=== PATIENT | female | born 1960 | race Caucasian/White ===

== ENCOUNTER 2016-03-29 14:45 | Emergency (ER) | payer SELFPAY ==
[2016-03-29] MEDS ORDERED: HYDROcodone/Acetaminophen 10/325 mg Tablet ONE (15:17)
[2016-03-29] MEDS ORDERED: Dexamethasone 4 MG TAB ONE (15:17)
[2016-03-29] MEDS ORDERED: Cyclobenzaprine 10 MG TAB ONE (15:17)
--- NOTE | 2016-03-29 15:31 | ERRECORD ---
[facility] EMERGENCY RECORD HPI BACK (15:15 ABUS) CHIEF COMPLAINT: Patient presents for evaluation of pain, to the left lower back. HISTORIAN: History provided by patient, 56 yr old F with chronic left hip arthritis, and lower back pain who comes in with 2 days of worsening left lower back pain. uses a cane at baseline due to arthritis. denies any fever, loss of bowel or bladder function, numbness or motor deficits. She tried ibuprofen and Tylenol without much control. MECHANISM OF INJURY: No apparent mechanism of injury. LOCATION: Symptoms are localized to the back, sacral region. QUALITY: Pain is dull in nature, described as aching. SEVERITY: Currently symptoms are moderate, Current severity of pain rated as 8/10. TIME COURSE: Gradual onset of symptoms, 2 days, First recent visit for this complaint. ASSOCIATED WITH: No associated abdominal pain, No associated bladder incontinence, No associated bowel incontinence, No associated dysuria, No associated fever, No associated inability to ambulate, No associated motor weakness, No associated numbness, No associated problems with urination, No associated sciatica, No associated tingling. EXACERBATED BY: Patient's condition exacerbated by movement, Patient's condition exacerbated by walking. RELIEVED BY: Patient's condition relieved by nothing. ROS (15:18 ABUS) CONSTITUTIONAL: Negative constitutional review of systems, Historian denies chills, denies fever. CARDIOVASCULAR: Negative cardiovascular review of systems, Historian denies chest pain, denies palpitations. RESPIRATORY: Negative respiratory review of systems, Historian denies cough, denies shortness of breath. GI: Negative gastrointestinal review of systems, Historian denies abdominal pain, denies constipation, denies diarrhea, denies nausea, denies vomiting. GENITOURINARY FEMALE: Negative genitourinary review of systems, Historian denies dysuria, denies frequency. MUSCULOSKELETAL: Historian reports back pain, denies deformity, denies fall, denies injury, denies neck pain. SKIN: Negative skin review of systems, Historian denies rash, denies skin changes. NEUROLOGIC: Negative neurologic review of systems, Historian denies headache. HEMO/LYMPHATIC: Normal hematologic/lymphatic system review, Historian denies abnormal blood clotting. PAST MEDICAL HISTORY (14:59 SFRE) MEDICAL HISTORY: Past medical history includes musculoskeletal disorder, chronic back pain, HX [place] 6 YEARS AGO. RIGHT NEPHRECTOMY 5 YEARS AGO. Cardiomyopathy, &a-1R&a+25V*p+0X*p8032A*c202B*c15G*c2P*p-0X&a-25V&a+1R Name: Lacie Martini : 1960 F56 MedRec: [id number] AcctNum: [id number] Prepared: Tiago Mar 29, 2016 15:32 by Interface Page 1 of 4 pMD [facility] EMERGENCY RECORD myocardial infarction, hypertension, which has been treated, Patient is compliant, myocardial infarction, ENLARGED HEART, hyperlipidemia, high cholesterol. FEMALE SURGICAL HISTORY: Surgical history of nephrectomy, cholecystectomy, laparoscopic, hysterectomy, Surgical history of nephrectomy, on the right. 05/22/2014 Verified, nochanges. PSYCHIATRIC HISTORY: No previous psychiatric history. 05/23/14 Verified, no changes. SOCIAL HISTORY: Patient denies alcohol use, Patient denies drug use, Patient currently uses tobacco, smokes cigarettes, daily, Patient smokes 1/2 packs per day, Patient currently uses tobacco, Patient smokes cigarettes, Patient smokes 1/2 packs per day, Patient has smoked for 30 years, Patient denies alcohol use, Patient denies drug use, Lives at home, with family. 05/22/2014 Verified, no changes. KNOWN ALLERGIES No Known Allergies (Unconfirmed) No Known Drug Allergies CURRENT MEDICATIONS amLODIPine: TABLET : Strength - 5 mg : ORAL Patient Dose: 10 mg Oral once a day. (14:58 SFRE) meTOPROLOL tartrate: TABLET : Strength - 25 mg : ORAL Patient Dose: 100 mg Oral once a day. (14:58 SFRE) isosorbide mononitrate: TABLET : Strength - 20 mg : ORAL Patient Dose: 60 mg Oral once a day. (15:00 SFRE) VITAL SIGNS VITAL SIGNS: BP: 166/112 (Right Arm), Pulse: 102, Resp: 18, Temp: 97.0 (Tympanic), Pain: 8 (Sharp), O2 sat: 97, Time: 03/29/2016 14:54. (14:54 SFRE) BP: 189/105 (Left Arm), Time: 03/29/2016 15:01. (15:01 SFRE) PHYSICAL EXAM (15:18 ABUS) CONSTITUTIONAL: Vital signs reviewed, Patient afebrile, Pulse normal, Blood pressure normal, Respiratory rate normal, Patient appears non toxic, Patient appears pain free, Patient alert and oriented to person, place and time. NECK: Neck exam normal, Neck exam included findings of normal range of motion, Trachea midline, no meningeal signs, no cervical adenopathy, no tenderness. RESPIRATORY CHEST: Respiratory and chest exam normal, Respiratory exam included findings of no respiratory distress, Breath sounds clear. CARDIOVASCULAR: Cardiovascular assessment normal, Cardiovascular exam included findings of heart rate regular rate and rhythm, Heart &a-1R&a+25V*p+0X*m3414A*c202B*c15G*c2P*p-0X&a-25V&a+1R Name: Lacie Martini : 1960 F56 MedRec: [id number] AcctNum: [id number] Prepared: Tiago Mar 29, 2016 15:32 by Interface Page 2 of 4 pMD [facility] RECORD sounds normal. ABDOMEN FEMALE: Abdominal exam included findings of abdomen nontender, Bowel sounds normal, no distension, no mass, no pulsatile masses, no peritoneal signs, no rigidity, no guarding, no rebound, Rovsing's sign absent. BACK: Back exam included findings of normal inspection, Tenderness, midline to the lower back, paraspinal to the left lower back, no costovertebral angle tenderness, no Scoliosis, X-rays not ordered, . NEURO: Neuro exam normal, Neuro exam findings include patient oriented to person, place and time, Speech normal, Gait normal. SKIN: Skin exam normal, Skin exam included findings of skin warm, dry, and normal in color, no rash. MEDICATION ADMINISTRATION SUMMARY Drug Name: dexamethasone, Dose Ordered: 10 mg, Route: Oral, Status: Canceled, Time: 15:21 03/29/2016, Drug Name: HYDROcodone-acetaminophen, Dose Ordered: 10/325 tab(s), Route: Oral, Status: Given, Time: 15:27 03/29/2016, Drug Name: Flexeril, Dose Ordered: 10 mg, Route: Oral, Status: Given, Time: 15:20 03/29/2016, Drug Name: dexamethasone, Dose Ordered: 8 mg, Route: Oral, Status: Given, Time: 15:03/29/2016, Detailed record available in Medication Service section. DOCTOR NOTES (15:19 ABUS) TEXT: 56 yr old F with chronic left hip arthritis, and lower back pain who comes in with 2 days of worsening left lower back pain. uses a cane at baseline due to arthritis. Exam: tenderness to the left sacroiliac joint area. No area of redness or swelling noted. DDX: Muscle strain, Muscle Spasm, Ligamentous Injury, Contusion, Soft Tissue Injury, Arthritis, Degenerative Joint Disease, Spinal Stenosis, Disk Herniation PLAN: Analgesics, Muscle Relaxants. Final Dispo: Home with follow up and return precautions. All results of testing and evaluation were shared with the patient who verbalized understanding and agreement with the plan of care. Level of Complexity / Medical Decision Making: Low. PROBLEM LIST No recorded problems DIAGNOSIS (15:13 ABUS) FINAL: PRIMARY: Sacroiliac Joint Pain, ADDITIONAL: Arthritis. PRESCRIPTION (15:14 ABUS) Flexeril: TABLET : 10 mg : ORAL : Quantity: 1 Unit: tab(s) Route: ORAL Schedule: every 8 hours PRN Dispense: 8 &a-1R&a+25V*p+0X*[id number]*c202B*c15G*c2P*p-0X&a-25V&a+1R Name: Lacie Martini : 1960 F56 MedRec: [id number] AcctNum: [id number] Prepared: Tiago Mar 29, 2016 15:32 by Interface Page 3 of 4 pMD [facility] RECORD Unit: tab(s) May substitute. Refills: No Refills . NOTES: No Refills. acetaminophen-codeine: TABLET : 300 mg-30 mg : ORAL : Quantity: 1 Unit: tab(s) Route: ORAL Schedule: every 8 hours PRN Dispense: 8 Unit: tab(s) May substitute. Refills: No Refills . NOTES: ^s=No Refills No Refills. DISPOSITION PATIENT: Disposition Type: Discharge, Disposition: *Discharge Home, Condition: Good. (15:13 ABUS) Patient left the department. (15:30 MDALAINA) Franco: AB=MD Taco, James SPEARS=KEITH Jules, Claudia FRANCOE=KEITH Lam, Patience &a-1R&a+25V*p+0X*[id number]*c202B*c15G*c2P*p-0X&a-25V&a+1R Name: Lacie Martini : 1960 F56 MedRec: [id number] AcctNum: [id number] Prepared: Tiago Mar 29, 2016 15:32 by Interface Page 4 of 4 pMD MTDD
--- NOTE | 2016-03-29 15:37 | PICIS ---
[facility] EMERGENCY RECORD TRIAGE (14:56 SFRE) TRIAGE NOTES: KNOT TO LOWER RIGHT HIP NEAR TAILBONE. (14:56 SFRE) PATIENT: NAME: Lacie Martini, AGE: 56, GENDER: female, : Mon1960, TIME OF GREET: MonMar 29, 2016 14:45, PREFERRED LANGUAGE: German, ETHNICITY: Not or , ECODE BILLING MAP: [facility], SSN: [id number], Zip Code: [address], KG WEIGHT: 90.72, PHONE: , , , PERSON ID: [id number], PCP: NO PCP. (14:56 SFRE) COMPLAINT: KNOT ON BACK. (14:56 SFRE) ADMISSION: URGENCY: 4 Non Urgent, ADMISSION SOURCE: Home, TRANSPORT: Walk-in, BED: ED -04. (14:56 SFRE) ASSESSMENT: Assessment: WALKS WITH CANE AND APPEARS TO BE IN MODERATE PAIN, Symptoms began COUPLE DAYS. (15:02 SFRE) PAIN: Patient complains of pain described as, sharp, shooting, on a scale 0-10 patient rates pain as 8, Location LOWER BACK CLOSE TO TAILBONE, Pain is constant, Aggravating factors:, Pain exacerbated by movement, No relieving factors. (15:03 SFRE) IMMUNIZATIONS: Flu vaccine not up to date. (15:04 SFRE) SIRS SCORING: Heart Rate 55-109 (0), Temp range 96.8-101.1 (0), respiratory rate 12-24 (0), Mental Status altered: no (0). (15:04 SFRE) TRIAGE SCREENING: Patient denies suicidal ideation, Patient denies presence of domestic violence. (15:05 SFRE) PROVIDERS: TRIAGE NURSE: Patience Lam RN. (14:56 SFRE) VITAL SIGNS: BP 166/112, (Right Arm), Pulse 102, Resp 18, Temp 97.0, (Tympanic), Pain 8, (Sharp), O2 Sat 97, Time 03/29/2016 14:54. (14:54 SFRE) PREVIOUS VISIT ALLERGIES: No Known Drug Allergies. (14:56 SFRE) No Known Drug Allergies. (14:59 SFRE) KNOWN ALLERGIES No Known Allergies (Unconfirmed) No Known Drug Allergies CURRENT MEDICATIONS amLODIPine: TABLET : Strength - 5 mg : ORAL Patient Dose: 10 mg Oral once a day. (14:58 SFRE) meTOPROLOL tartrate: TABLET : Strength - 25 mg : ORAL Patient Dose: 100 mg Oral once a day. (14:58 SFRE) isosorbide mononitrate: TABLET : Strength - 20 mg : ORAL Patient Dose: 60 mg Oral once a day. (15:00 SFRE) VITAL SIGNS &a-1R&a+25V*p+0X*c4408M*c202B*c15G*c2P*p-0X&a-25V&a+1R Name: Lacie Martini : 1960 F56 MedRec: [id number] AcctNum: [id number] Prepared: MonMar 29, 2016 15:32 by Interface Page 1 of 6 pMD [facility] EMERGENCY RECORD VITAL SIGNS: BP: 166/112 (Right Arm), Pulse: 102, Resp: 18, Temp: 97.0 (Tympanic), Pain: 8 (Sharp), O2 sat: 97, Time: 03/29/2016 14:54. (14:54 SFRE) BP: 189/105 (Left Arm), Time: 03/29/2016 15:01. (15:01 SFRE) NURSING PROCEDURE: DISCHARGE NOTE (15:25 MDEB) DISCHARGE: Patient discharged to home, ambulating without assistance, family driving, accompanied by other family member, Summary of Care printed/ provided, Patient requested and was provided an electronic copy of Discharge Instructions, Transition record given to patient, Discharge instructions given to patient, Prescriptions given and instructions on side effects given, Above person(s) verbalized understanding of discharge instructions and follow-up care, Patient treated and evaluated by physician. BELONGINGS: Belongings remain with patient, Valuables remain with patient. NOTES: Emotional support needed and given, Patient tolerated procedure well. NURSING PROCEDURE: NURSE NOTES (15:06 SFRE) NURSES NOTES: Patient examined by physician. MEDICATION ADMINISTRATION SUMMARY Drug Name: dexamethasone, Dose Ordered: 10 mg, Route: Oral, Status: Canceled, Time: 15:21 03/29/2016, Drug Name: HYDROcodone-acetaminophen, Dose Ordered: 10/325 tab(s), Route: Oral, Status: Given, Time: 15:27 03/29/2016, Drug Name: Flexeril, Dose Ordered: 10 mg, Route: Oral, Status: Given, Time: 15:20 03/29/2016, Drug Name: dexamethasone, Dose Ordered: 8 mg, Route: Oral, Status: Given, Time: 15:20 03/29/2016, Detailed record available in Medication Service section. MEDICATION SERVICE dexamethasone: Order: dexamethasone - Dose: 10 mg : Oral Schedule: Now Ordered by: James España MD Entered by: Jaems España MD MonMar 29, 2016 15:12 , Acknowledged by: Claduia Jules RN MonMar 29, 2016 15:14. (CANCELED) dexamethasone: Originally ordered MonMar 29, 2016 15:12 Cancel reason: Change in medication plan. (15:21 MDEB) dexamethasone: Order: dexamethasone - Dose: 8 mg : Oral Schedule: Now Ordered by: James España MD Entered by: James España MD MonMar 29, 2016 15:21 Documented as given by: Claudia Jules RN MonMar 29, 2016 15:20 &a-1R&a+25V*p+0X*k3023D*c202B*c15G*c2P*p-0X&a-25V&a+1R Name: Lacie Martini : 1960 F56 MedRec: [id number] AcctNum: [id number] Prepared: MonMar 29, 2016 15:32 by Interface Page 2 of 6 pMD [facility] EMERGENCY RECORD Patient, Medication, Dose, Route and Time verified prior to administration. Amount given: 8 MG, Site: Medication administered P.O., Correct patient, time, route, dose and medication confirmed prior to administration, Patient advised of actions and side-effects prior to administration, Allergies confirmed and medications reviewed prior to administration, Patient in position of comfort, Side rails up, Cart in lowest position, Family at bedside. Flexeril: Order: Flexeril (cyclobenzaprine HCl) - Dose: 10 mg : Oral Schedule: Now Ordered by: James España MD Entered by: James España MD MonMar 29, 2016 15:12 Documented as given by: Claudia Jules RN Mar 29, 2016 15:20 Patient, Medication, Dose, Route and Time verified prior to administration. Amount given: 10 MG, Site: Medication administered P.O., Correct patient, time, route, dose and medication confirmed prior to administration, Patient advised of actions and side-effects prior to administration, Allergies confirmed and medications reviewed prior to administration, Patient in position of comfort, Side rails up, Cart in lowest position, Family at bedside. HYDROcodone-acetaminophen: Order: HYDROcodone-acetaminophen (hydrocodone bitartrate/acetaminophen) - Dose: 10/325 tab(s) : Oral Schedule: Now Ordered by: James España MD Entered by: James España MD MonMar 29, 2016 15:11 Documented as given by: Claudia Jules RN MonMar 29, 2016 15:27 Patient, Medication, Dose, Route and Time verified prior to administration. Amount given: 10/325 MG, Site: Medication administered P.O., Correct patient, time, route, dose and medication confirmed prior to administration, Patient advised of actions and side-effects prior to administration, Allergies confirmed and medications reviewed prior to administration, Patient in position of comfort, Side rails up, Cart in lowest position, Family at bedside. HPI BACK (15:15 ABUS) CHIEF COMPLAINT: Patient presents for evaluation of pain, to the left lower back. HISTORIAN: History provided by patient, 56 yr old F with chronic left hip arthritis, and lower back pain who comes in with 2 days of worsening left lower back pain. uses a cane at baseline due to arthritis. denies any fever, loss of bowel or bladder function, numbness or motor deficits. She tried ibuprofen and Tylenol without much control. MECHANISM OF INJURY: No apparent mechanism of injury. LOCATION: Symptoms are localized to the back, sacral region. QUALITY: Pain is dull in nature, described as aching. &a-1R&a+25V*p+0X*j2816D*c202B*c15G*c2P*p-0X&a-25V&a+1R Name: Lacie Martini : 1960 F56 MedRec: [id number] AcctNum: [id number] Prepared: MonMar 29, 2016 15:32 by Interface Page 3 of 6 pMD [facility] EMERGENCY RECORD SEVERITY: Currently symptoms are moderate, Current severity of pain rated as 8/10. TIME COURSE: Gradual onset of symptoms, 2 days, First recent visit for this complaint. ASSOCIATED WITH: No associated abdominal pain, No associated bladder incontinence, No associated bowel incontinence, No associated dysuria, No associated fever, No associated inability to ambulate, No associated motor weakness, No associated numbness, No associated problems with urination, No associated sciatica, No associated tingling. EXACERBATED BY: Patient's condition exacerbated by movement, Patient's condition exacerbated by walking. RELIEVED BY: Patient's condition relieved by nothing. ROS (15:18 ABUS) CONSTITUTIONAL: Negative constitutional review of systems, Historian denies chills, denies fever. CARDIOVASCULAR: Negative cardiovascular review of systems, Historian denies chest pain, denies palpitations. RESPIRATORY: Negative respiratory review of systems, Historian denies cough, denies shortness of breath. GI: Negative gastrointestinal review of systems, Historian denies abdominal pain, denies constipation, denies diarrhea, denies nausea, denies vomiting. GENITOURINARY FEMALE: Negative genitourinary review of systems, Historian denies dysuria, denies frequency. MUSCULOSKELETAL: Historian reports back pain, denies deformity, denies fall, denies injury, denies neck pain. SKIN: Negative skin review of systems, Historian denies rash, denies skin changes. NEUROLOGIC: Negative neurologic review of systems, Historian denies headache. HEMO/LYMPHATIC: Normal hematologic/lymphatic system review, Historian denies abnormal blood clotting. PAST MEDICAL HISTORY (14:59 SFRE) MEDICAL HISTORY: Past medical history includes musculoskeletal disorder, chronic back pain, HX [place] 6 YEARS AGO. RIGHT NEPHRECTOMY 5 YEARS AGO. Cardiomyopathy, myocardial infarction, hypertension, which has been treated, Patient is compliant, myocardial infarction, ENLARGED HEART, hyperlipidemia, high cholesterol. FEMALE SURGICAL HISTORY: Surgical history of nephrectomy, cholecystectomy, laparoscopic, hysterectomy, Surgical history of nephrectomy, on the right. 05/22/2014 Verified, nochanges. PSYCHIATRIC HISTORY: No previous psychiatric history. 05/23/14 Verified, no changes. SOCIAL HISTORY: Patient denies alcohol use, Patient denies drug use, Patient currently uses tobacco, smokes cigarettes, daily, Patient smokes 1/2 packs per day, Patient currently uses tobacco, Patient smokes cigarettes, Patient smokes 1/2 packs per day, Patient &a-1R&a+25V*p+0X*p5513Q*c202B*c15G*c2P*p-0X&a-25V&a+1R Name: Lacie Martini : 1960 F56 MedRec: [id number] AcctNum: [id number] Prepared: MonMar 29, 2016 15:32 by Interface Page 4 of 6 pMD [facility] EMERGENCY RECORD has smoked for 30 years, Patient denies alcohol use, Patient denies drug use, Lives at home, with family. 05/22/2014 Verified, no changes. PHYSICAL EXAM (15:18 ABUS) CONSTITUTIONAL: Vital signs reviewed, Patient afebrile, Pulse normal, Blood pressure normal, Respiratory rate normal, Patient appears non toxic, Patient appears pain free, Patient alert and oriented to person, place and time. NECK: Neck exam normal, Neck exam included findings of normal range of motion, Trachea midline, no meningeal signs, no cervical adenopathy, no tenderness. RESPIRATORY CHEST: Respiratory and chest exam normal, Respiratory exam included findings of no respiratory distress, Breath sounds clear. CARDIOVASCULAR: Cardiovascular assessment normal, Cardiovascular exam included findings of heart rate regular rate and rhythm, Heart sounds normal. ABDOMEN FEMALE: Abdominal exam included findings of abdomen nontender, Bowel sounds normal, no distension, no mass, no pulsatile masses, no peritoneal signs, no rigidity, no guarding, no rebound, Rovsing's sign absent. BACK: Back exam included findings of normal inspection, Tenderness, midline to the lower back, paraspinal to the left lower back, no costovertebral angle tenderness, no Scoliosis, X-rays not ordered, . NEURO: Neuro exam normal, Neuro exam findings include patient oriented to person, place and time, Speech normal, Gait normal. SKIN: Skin exam normal, Skin exam included findings of skin warm, dry, and normal in color, no rash. EVENTS TRANSFER: Triage to Emergency Main ED -04. (MonMar 29, 2016 14:56 SFRE) Removed from Emergency Main ED -04. (15:30 MDEB) DOCTOR NOTES (15:19 ABUS) TEXT: 56 yr old F with chronic left hip arthritis, and lower back pain who comes in with 2 days of worsening left lower back pain. uses a cane at baseline due to arthritis. Exam: tenderness to the left sacroiliac joint area. No area of redness or swelling noted. DDX: Muscle strain, Muscle Spasm, Ligamentous Injury, Contusion, Soft Tissue Injury, Arthritis, Degenerative Joint Disease, Spinal Stenosis, Disk Herniation PLAN: Analgesics, Muscle Relaxants. Final Dispo: Home with follow up and return precautions. All results of testing and evaluation were shared with the patient who verbalized understanding and agreement with the plan of care. Level of Complexity / Medical Decision Making: Low. &a-1R&a+25V*p+0X*x9985H*c202B*c15G*c2P*p-0X&a-25V&a+1R Name: Lacie Martini : 1960 F56 MedRec: [id number] AcctNum: [id number] Prepared: Tiago Mar 29, 2016 15:32 by Interface Page 5 of 6 pMD [facility] EMERGENCY RECORD PROBLEM LIST No recorded problems DIAGNOSIS (15:13 ABUS) FINAL: PRIMARY: Sacroiliac Joint Pain, ADDITIONAL: Arthritis. DISPOSITION PATIENT: Disposition Type: Discharge, Disposition: *Discharge Home, Condition: Good. (15:13 ABUS) Patient left the department. (15:30 MDEB) INSTRUCTION (15:13 ABUS) DISCHARGE: SACROILIITIS. FOLLOWUP: [facility], /[facility], [address] [place] [id number], , Follow up with Primary Care Physician as needed. SPECIAL: Please keep any upcoming appointments with your primary doctor or call the referral provided to you today to establish a follow up evaluation or ongoing medical care. Please come back if you start to have fever, vomiting, changes in bowel or bladder function, or any symptoms that concern you. PRESCRIPTION (15:14 ABUS) Flexeril: TABLET : 10 mg : ORAL : Quantity: 1 Unit: tab(s) Route: ORAL Schedule: every 8 hours PRN Dispense: 8 Unit: tab(s) May substitute. Refills: No Refills . NOTES: No Refills. acetaminophen-codeine: TABLET : 300 mg-30 mg : ORAL : Quantity: 1 Unit: tab(s) Route: ORAL Schedule: every 8 hours PRN Dispense: 8 Unit: tab(s) May substitute. Refills: No Refills . NOTES: ^s=No Refills No Refills. IMAGING *DISCHARGE INSTRUCTIONS RECEIPT: Image captured from scanner. (15:28 MDALAINA) *SUPPLY CHARGE SHEET: Image captured from scanner. (15:29 MDALAINA) ADMIN DIGITAL SIGNATURE: MD España Anthony. (15:20 ABUS) MD España Anthony. (15:23 ABUS) Franco: ABUS=MD España Anthony MDEB=KEITH Jules, Claudia SFRE=KEITH Lam, Patience &a-1R&a+25V*p+0X*d7805G*c202B*c15G*c2P*p-0X&a-25V&a+1R Name: Lacie Martini Shukri : 1960 F56 MedRec: [id number] AcctNum: [id number] Prepared: Tiago Mar 29, 2016 15:32 by Interface Page 6 of 6 pMD MTDD
== END 2016-03-29 15:25 | disposition home or self-care (01) ==
LOC: MADERS 14:45
DX: M46.1 Sacroiliitis, not elsewhere classified (principal); I25.2 Old myocardial infarction; I10 Essential (primary) hypertension; E78.5 Hyperlipidemia, unspecified; E78.00 Pure hypercholesterolemia, unspecified; F17.210 Nicotine dependence, cigarettes, uncomplicated; Z90.49 Acquired absence of other specified parts of digestive tract; Z90.710 Acquired absence of both cervix and uterus; Z79.899 Other long term (current) drug therapy
CPT/HCPCS: 99283; J8540

== ENCOUNTER 2016-09-19 22:37 | Emergency (ER) | payer OTHER ==
[~2016-09-19 22:37] MED LIST: Sodium Chloride 0.9% 100 ML BAG ONE; Sodium Chloride 0.9% 500 ML BAG ONE
[2016-09-19] MEDS ORDERED: Ondansetron HCl/PF 4 MG/2 ML Vial ONE (22:56)
[2016-09-19 23:10] LABS: Bilirubin Negative (Negative); Blood, Urine Small (Negative); Clarity Hazy (Clear); Glucose, Urine (Dipstick) Negative (Negative); Leukocyte Trace (Negative); Nitrite Negative (Negative); Protein, Urine (Dipstick) 100 mg/dL (Neg-Trace); Urobilinogen 0.2 mg/dL (0.2-1.0)
[2016-09-19 23:11] LABS: Bacteria/HPF 1+ HPF (None Seen); WBC/HPF 0-3 HPF (0-3)
[2016-09-19 23:15] LABS: #Basophils 0.1 thou/uL (0.0-0.2); #Eosinphils 0.1 thou/uL (0.0-0.7); #Lymphocytes 2.3 thou/uL (1.20-3.40); #Monocytes 0.5 thou/uL (0.11-0.59); #Neutrophils 6.1 thou/uL (1.40-6.50); %Basophils 0.9 % (0.0-1.0); %Eosinophils 1.1 % (0.0-10.0); %Monocytes 5.6 % (0.0-10.0); %Neutrophils 67.4 % (42.0-75.0); Hemoglobin 15.1 g/dL (12.0-16.0); Mean Corpuscular HGB CONC 33.8 g/dL (32.0-36.0); Mean Corpuscular Hemoglobin 30.3 pg (27.0-31.0); Mean Corpuscular Volume 89.5 fl (81.0-99.0); Platelet Count 227 thou/uL (130-400); RBC Distribution Width 11.9 % (11.5-14.5); Red Blood Cell (RBC) Count 4.97 mill/uL (4.20-5.40)
[2016-09-19 23:30] LABS: ALT (SGPT) 11 U/L (8-55); AST (SGOT) 13 U/L (5-34); Albumin 4.2 g/dL (3.5-5.0); Alkaline Phosphatase 62 U/L (40-150); Anion Gap 17 mmol/L (10-20); BUN (Urea Nitrogen) 18 mg/dL (9.8-20.1); Bilirubin, Total 0.5 mg/dL (0.2-1.2); Calc. Creatinine Clearance 0 mL/min (70-130); Calcium 9.8 mg/dL (7.8-10.44); Carbon Dioxide 24 mmol/L (22-29); Chloride 104 mmol/L (98-107); Estimated GFR-MDRD 48; Globulin 3.4 g/dL (2.4-3.5); Glucose 99 mg/dL (70-105); Lipase 23 U/L (8-78); Magnesium 1.9 mg/dL (1.6-2.6); Potassium 3.6 mmol/L (3.5-5.1); Protein, Total 7.6 g/dL (6.0-8.3); Sodium 141 mmol/L (136-145)
[2016-09-19 23:31] LABS: CKMB 1.7 ng/mL (0-6.6); Troponin I 0.015 ng/mL (< 0.028)
--- NOTE | 2016-09-19 23:45 | CT ---
CT ABDOMEN AND PELVIS WITHOUT CONTRAST 09/19/16 COMPARISON: 09/30/13 HISTORY: Nausea, vomiting, and abdominal pain. TECHNIQUE: Multiple contiguous axial images were obtained in a CT of the abdomen and pelvis without contrast. C oronal reformats were performed. FINDINGS: The patient is status post cholecystectomy, hysterectomy and right nephrectomy. A hypodensity in the left kidney likely represents a cyst. There is a 9 mm nonobstructing calcification in the left kidn ey. There is a 1.6 cm cyst in the liver. The adrenal glands, spleen, and pancreas are unremarkable o n this limited noncontrast examination. There is stranding changes in the abdomen adjacent to the stomach/proximal duodenum. This could repr esent duodenitis or gastritis. No free air or free fluid are seen in the abdomen or pelvis. Scattere d diverticula are seen in the colon. The small bowel is normal in caliber. The appendix is unremarka ble. No abdominal or pelvic lymphadenopathy are seen. Atherosclerotic calcifications are seen in the aort a. Degenerative changes are seen in the spine. The visualized inferior thorax and abdominal wall soft t issues are unremarkable. IMPRESSION: 1. There is inflammatory change in the right mid abdomen. This could be secondary to gastritis or duodenitis. 2. Diverticulosis. 3. Nonobstructing left renal calcification. 4. Hepatic and left renal cysts. POS: [facility]
[2016-09-19] MEDS ORDERED: cefTRIAXone\\ROCEPHIN 1 GM VIAL ONE (23:49)
[2016-09-19] MEDS ORDERED: Promethazine HCl 25 MG/ML VIAL ONE (23:49)
== END 2016-09-20 00:14 | disposition short-term general hospital (02) ==
LOC: MADERS 22:37
DX: N20.0 Calculus of kidney (principal); K29.80 Duodenitis without bleeding; G89.29 Other chronic pain; M54.9 Dorsalgia, unspecified; E78.5 Hyperlipidemia, unspecified; F17.210 Nicotine dependence, cigarettes, uncomplicated; Z79.2 Long term (current) use of antibiotics; Z79.899 Other long term (current) drug therapy
CPT/HCPCS: 51701; 74176; 80053; 81003; 81015; 82553; 83690; 83735; 84484; 85025; 87086; 96361; 96374; 96375; A4353; J0696; J2270; J2405; J2550; J7050

== ENCOUNTER 2017-01-18 15:51 | Emergency (ER) | payer OTHER ==
[~2017-01-18 15:51] MED LIST changes: +Sodium Chloride 0.9% 1,000 ML BAG ONE; -Sodium Chloride 0.9% 100 ML BAG ONE; -Sodium Chloride 0.9% 500 ML BAG ONE
[2017-01-18 16:26] LABS: #Basophils 0.1 thou/uL (0.0-0.2); #Lymphocytes 1.7 thou/uL (1.20-3.40); #Monocytes 0.3 thou/uL (0.11-0.59); %Basophils 0.7 % (0.0-1.0); %Eosinophils 0.4 % (0.0-10.0); %Lymphocytes 20.9 % (21.0-51.0); %Monocytes 3.9 % (0.0-10.0); %Neutrophils 74.1 % (42.0-75.0); Hemoglobin 10.1 g/dL (12.0-16.0); Mean Corpuscular HGB CONC 33.2 g/dL (32.0-36.0); Mean Corpuscular Hemoglobin 30.5 pg (27.0-31.0); Mean Corpuscular Volume 91.9 fl (81.0-99.0); Mean Platelet Volume 7.8 fL (7.4-10.4); Platelet Count 196 thou/uL (130-400); RBC Distribution Width 13.8 % (11.5-14.5); Red Blood Cell (RBC) Count 3.32 mill/uL (4.20-5.40)
[2017-01-18 16:29] LABS: INR-International Normal Ratio 1.1; Prothrombin Time 14.5 SEC (12.0-14.7)
[2017-01-18] MEDS ORDERED: Nitroglycerin 0.4 MG TAB 1 EACH ONE (16:29)
[2017-01-18] MEDS ORDERED: Ondansetron HCl/PF 4 MG/2 ML Vial ONE (16:29)
[2017-01-18 16:44] LABS: ALT (SGPT) 8 U/L (8-55); AST (SGOT) 11 U/L (5-34); Albumin 3.5 g/dL (3.5-5.0); Alkaline Phosphatase 45 U/L (40-150); Anion Gap 15 mmol/L (10-20); BUN (Urea Nitrogen) 30 mg/dL (9.8-20.1); Bilirubin, Total Less than 0.3 mg/dL (0.2-1.2); CKMB 2.2 ng/mL (0-6.6); Calc. Creatinine Clearance 0 mL/min (70-130); Calcium 8.7 mg/dL (7.8-10.44); Carbon Dioxide 23 mmol/L (22-29); Chloride 111 mmol/L (98-107); Estimated GFR-MDRD 54; Globulin 2.4 g/dL (2.4-3.5); Glucose 100 mg/dL (70-105); Lipase 17 U/L (8-78); Potassium 3.5 mmol/L (3.5-5.1); Protein, Total 5.9 g/dL (6.0-8.3); Sodium 145 mmol/L (136-145); Troponin I 0.055 ng/mL (< 0.028)
--- NOTE | 2017-01-18 16:51 | RAD ---
RADIOGRAPH CHEST 1 VIEW: HISTORY: A 56-year-old female with acute chest pain. FINDINGS: There is hyperinflation of the lungs, consistent with COPD. The thoracic aorta is tortuous and ecta tic. There is no evidence of air space density, pneumothorax, or pulmonary edema. The lateral cost ophrenic angles are sharp. There is no cardiomegaly. No interval change overall since 05/22/2014. IMPRESSION: 1) No acute pulmonary findings. 2) Emphysema. 3) Ectasia of thoracic aorta. soledad [] POS: [facility]
== END 2017-01-18 18:06 | disposition short-term general hospital (02) ==
LOC: MADERS 15:51
DX: R07.2 Precordial pain (principal); R79.89 Other specified abnormal findings of blood chemistry; I25.2 Old myocardial infarction; I10 Essential (primary) hypertension; E78.5 Hyperlipidemia, unspecified; F17.210 Nicotine dependence, cigarettes, uncomplicated; G89.29 Other chronic pain
CPT/HCPCS: 71010; 80053; 82553; 83690; 83880; 84484; 85025; 85610; 85730; 93005; 94760; 96374; J2405; J7050

== ENCOUNTER 2017-03-15 13:15 | Emergency (ER) | payer OTHER ==
[2017-03-15] MEDS ORDERED: Ibuprofen 800 MG TAB ONE (14:17)
[2017-03-15] MEDS ORDERED: Diazepam 5 MG TAB ONE (14:17)
[2017-03-15] MEDS ORDERED: Dexamethasone 4 MG TAB ONE (14:17)
[2017-03-15] MEDS ORDERED: HYDROcodone/Acetaminophen 10/325 mg Tablet ONE (14:17)
== END 2017-03-15 14:27 | disposition home or self-care (01) ==
LOC: MADERS 13:15
DX: M54.5 Low back pain (principal); E78.5 Hyperlipidemia, unspecified; F17.210 Nicotine dependence, cigarettes, uncomplicated; I10 Essential (primary) hypertension; I25.2 Old myocardial infarction
CPT/HCPCS: 99283; J8540

== ENCOUNTER 2017-11-17 18:02 | Emergency (ER) | payer OTHER ==
[2017-11-17] MEDS ORDERED: Clindamycin 150 MG CAP ONE (18:20)
[2017-11-17] MEDS ORDERED: HYDROcodone/Acetaminophen 10/325 mg Tablet ONE (18:20)
== END 2017-11-17 18:30 | disposition home or self-care (01) ==
LOC: MADERS 18:02
DX: L03.116 Cellulitis of left lower limb (principal); I10 Essential (primary) hypertension; F17.210 Nicotine dependence, cigarettes, uncomplicated; I25.2 Old myocardial infarction
CPT/HCPCS: 99283

== ENCOUNTER 2018-04-12 18:45 | Emergency (ER) | payer OTHER, SELFPAY ==
[2018-04-12] MEDS ORDERED: traMADol HCl 50 MG TAB ONE ×2 (20:19)
== END 2018-04-12 20:20 | disposition home or self-care (01) ==
LOC: MADERS 18:45
DX: I83.028 Varicose veins of left lower extremity with ulcer other part of lower leg (principal); L97.829 Non-pressure chronic ulcer of other part of left lower leg with unspecified severity; K21.9 Gastro-esophageal reflux disease without esophagitis; E78.5 Hyperlipidemia, unspecified; I10 Essential (primary) hypertension; F17.210 Nicotine dependence, cigarettes, uncomplicated; Z79.899 Other long term (current) drug therapy; Z79.82 Long term (current) use of aspirin
CPT/HCPCS: 36416; 99283

== ENCOUNTER 2018-05-25 13:37 | Emergency (ER) | payer SELFPAY ==
[2018-05-25] MEDS ORDERED: methylPREDNISolone Sod Succ/PF 125 MG/2 ML VIAL ONE (14:49)
--- NOTE | 2018-05-25 15:58 | RAD ---
RIGHT HIP 2 VIEWS: Date: 05/25/18 HISTORY: Joint pain. FINDINGS: Complete loss of joint space with mild lateral subluxation. Prominent osteophytosis and subchondral s clerosis. Articular surface irregularity on both sides. No aggressive osseous erosions. IMPRESSION: Severe osteoarthritic changes right hip. POS: [facility]
[2018-05-25] MEDS ORDERED: Ibuprofen 800 MG TAB ONE (18:36)
== END 2018-05-25 15:30 | disposition home or self-care (01) ==
LOC: MADERS 13:37
DX: M16.11 Unilateral primary osteoarthritis, right hip (principal); Z71.6 Tobacco abuse counseling; K21.9 Gastro-esophageal reflux disease without esophagitis; E78.5 Hyperlipidemia, unspecified; I25.2 Old myocardial infarction; I10 Essential (primary) hypertension; F17.210 Nicotine dependence, cigarettes, uncomplicated; Z79.899 Other long term (current) drug therapy; Z79.82 Long term (current) use of aspirin
CPT/HCPCS: 96372; 99406; J2930

== ENCOUNTER 2018-07-05 12:50 | Emergency (ER) | payer SELFPAY ==
--- NOTE | 2018-07-05 13:13 | RAD ---
EXAM: Single view of the chest HISTORY: Chest pain COMPARISON: 01/18/2017 FINDINGS: Single view of the chest shows a normal sized cardiomediastinal silhouette. There is no dom dence of consolidation, mass, or pleural effusion. The bones are unremarkable. IMPRESSION: No evidence of acute cardiopulmonary disease
[2018-07-05 13:27] LABS: #Lymphocytes 0.7 thou/uL (1.20-3.40); #Monocytes 0.3 thou/uL (0.11-0.59); #Neutrophils 8.5 thou/uL (1.40-6.50); %Basophils 0.3 % (0.0-1.0); %Eosinophils 0.2 % (0.0-10.0); %Monocytes 3.3 % (0.0-10.0); %Neutrophils 89.2 % (42.0-75.0); Hemoglobin 11.4 g/dL (12.0-16.0); Mean Corpuscular HGB CONC 30.9 g/dL (32.0-36.0); Mean Corpuscular Hemoglobin 27.8 pg (27.0-31.0); Mean Corpuscular Volume 89.9 fL (78.0-98.0); Mean Platelet Volume 7.8 fL (7.4-10.4); Platelet Count 239 thou/uL (130-400); RBC Distribution Width 14.6 % (11.5-14.5); Red Blood Cell (RBC) Count 4.09 mill/uL (4.20-5.40); White Blood Cell (WBC) Count 9.5 thou/uL (4.8-10.8)
[2018-07-05 13:34] LABS: PTT 27.4 SEC (22.9-36.1); Prothrombin Time 13.6 SEC (12.0-14.7)
[2018-07-05] MEDS ORDERED: Pantoprazole 40 MG VIAL ONE (13:36)
[2018-07-05 13:45] LABS: ALT (SGPT) 9 U/L (8-55); AST (SGOT) 12 U/L (5-34); Albumin 3.9 g/dL (3.5-5.0); Alkaline Phosphatase 54 U/L (40-150); Anion Gap 17 mmol/L (10-20); BUN (Urea Nitrogen) 43 mg/dL (9.8-20.1); Bilirubin, Total 0.4 mg/dL (0.2-1.2); Calc. Creatinine Clearance 0 mL/min (70-130); Calcium 10.2 mg/dL (7.8-10.44); Carbon Dioxide 22 mmol/L (22-29); Chloride 106 mmol/L (98-107); Estimated GFR-MDRD 39; Globulin 3.1 g/dL (2.4-3.5); Glucose 110 mg/dL (70-105); Potassium 4.6 mmol/L (3.5-5.1); Sodium 140 mmol/L (136-145)
[2018-07-05] MEDS ORDERED: Ondansetron PF 4 MG/2 ML Vial ONE (16:12)
== END 2018-07-05 16:14 | disposition short-term general hospital (02) ==
LOC: MADERS 12:50
DX: K92.2 Gastrointestinal hemorrhage, unspecified (principal); K21.9 Gastro-esophageal reflux disease without esophagitis; E78.5 Hyperlipidemia, unspecified; I10 Essential (primary) hypertension; R07.2 Precordial pain; F17.210 Nicotine dependence, cigarettes, uncomplicated; Z79.891 Long term (current) use of opiate analgesic; Z79.899 Other long term (current) drug therapy; Z79.82 Long term (current) use of aspirin
CPT/HCPCS: 71045; 80053; 82274; 83880; 84484; 85025; 85610; 85730; 93005; 94760; 96374; 96375; C9113; J2405

== ENCOUNTER 2018-08-05 17:26 | Emergency (ER) | payer SELFPAY ==
[2018-08-05] MEDS ORDERED: Ciprofloxacin Lactate/D5W 400 mg/200 ml Premix ONE (18:28)
[2018-08-05] MEDS ORDERED: Ondansetron PF 4 MG/2 ML Vial ONE (18:28)
[2018-08-05 19:02] LABS: #Eosinphils 0.1 thou/uL (0.0-0.7); #Lymphocytes 1.8 thou/uL (1.20-3.40); #Monocytes 0.4 thou/uL (0.11-0.59); #Neutrophils 4.8 thou/uL (1.40-6.50); %Basophils 0.6 % (0.0-1.0); %Eosinophils 1.3 % (0.0-10.0); %Lymphocytes 25.1 % (21.0-51.0); %Monocytes 6.3 % (0.0-10.0); %Neutrophils 66.8 % (42.0-75.0); Hemoglobin 11.9 g/dL (12.0-16.0); Mean Corpuscular Hemoglobin 26.9 pg (27.0-31.0); Mean Corpuscular Volume 86.9 fL (78.0-98.0); Mean Platelet Volume 7.3 fL (7.4-10.4); Platelet Count 200 thou/uL (130-400); RBC Distribution Width 13.9 % (11.5-14.5); Red Blood Cell (RBC) Count 4.43 mill/uL (4.20-5.40); White Blood Cell (WBC) Count 7.1 thou/uL (4.8-10.8)
[2018-08-05 19:17] LABS: ALT (SGPT) Less than 7 U/L (8-55); AST (SGOT) 11 U/L (5-34); Albumin 3.8 g/dL (3.5-5.0); Alkaline Phosphatase 57 U/L (40-150); Anion Gap 13 mmol/L (10-20); BUN (Urea Nitrogen) 13 mg/dL (9.8-20.1); Bilirubin, Total 0.3 mg/dL (0.2-1.2); Calc. Creatinine Clearance 0 mL/min (70-130); Calcium 9.6 mg/dL (7.8-10.44); Carbon Dioxide 25 mmol/L (22-29); Chloride 106 mmol/L (98-107); Estimated GFR-MDRD 67; Glucose 99 mg/dL (70-105); Lipase 27 U/L (8-78); Potassium 4.4 mmol/L (3.5-5.1); Protein, Total 6.8 g/dL (6.0-8.3); Sodium 140 mmol/L (136-145)
[2018-08-05 19:35] LABS: Bilirubin Negative (Negative); Blood, Urine Small (Negative); Glucose, Urine (Dipstick) Negative (Negative); Leukocyte Small (Negative); Nitrite Negative (Negative); Protein, Urine (Dipstick) 30 mg/dL (Neg-Trace); Specific Gravity, Urine 1.025 (1.005-1.030); Urobilinogen 0.2 mg/dL (0.2-1.0)
[2018-08-05 19:36] LABS: Clarity Hazy (Clear)
[2018-08-05 19:41] LABS: Bacteria/HPF None Seen HPF (None Seen); WBC/HPF 21-50 HPF (0-3)
== END 2018-08-05 20:00 | disposition home or self-care (01) ==
LOC: MADERS 17:26
DX: L97.929 Non-pressure chronic ulcer of unspecified part of left lower leg with unspecified severity (principal); R19.7 Diarrhea, unspecified; R11.10 Vomiting, unspecified; N39.0 Urinary tract infection, site not specified; E78.5 Hyperlipidemia, unspecified; K21.9 Gastro-esophageal reflux disease without esophagitis; F17.210 Nicotine dependence, cigarettes, uncomplicated; I10 Essential (primary) hypertension; I25.2 Old myocardial infarction; Z79.891 Long term (current) use of opiate analgesic; Z79.82 Long term (current) use of aspirin; Z79.899 Other long term (current) drug therapy
CPT/HCPCS: 36415; 80053; 81003; 81015; 83605; 83690; 85025; 87086; 96365; 96375; J0744; J2405

== ENCOUNTER 2020-03-20 18:27 | Emergency (ER) | payer SELFPAY ==
[2020-03-20] MEDS ORDERED: Sodium Chloride 0.9% 1,000 ML ONE (19:09)
[2020-03-20] MEDS ORDERED: Prochlorperazine 10 MG/2 ML VIAL ONE (19:09)
[2020-03-20] MEDS ORDERED: diphenhydrAMINE 50 MG/ML VIAL ONE (19:09)
[2020-03-20] MEDS ORDERED: Acetaminophen 500 MG TAB ONE (19:09)
== END 2020-03-20 20:48 | disposition home or self-care (01) ==
LOC: MADERS 18:27
DX: G43.909 Migraine, unspecified, not intractable, without status migrainosus (principal); K21.9 Gastro-esophageal reflux disease without esophagitis; E78.5 Hyperlipidemia, unspecified; I25.2 Old myocardial infarction; I12.9 Hypertensive chronic kidney disease with stage 1 through stage 4 chronic kidney disease, or unspecified chronic kidney disease; N18.30 Chronic kidney disease, stage 3 unspecified; F17.210 Nicotine dependence, cigarettes, uncomplicated; Z79.899 Other long term (current) drug therapy
CPT/HCPCS: 96365; 96375; J0780; J1200; J7050

== ENCOUNTER 2020-11-19 18:05 | Emergency (ER) | payer SELFPAY ==
[2020-11-19 19:30] LABS: #Basophils 0.1 thou/uL (0.0-0.2); #Lymphocytes 1.5 thou/uL (1.20-3.40); #Neutrophils 11.7 thou/uL (1.40-6.50); %Basophils 0.5 % (0.0-1.0); %Eosinophils 0.1 % (0.0-10.0); %Lymphocytes 10.8 % (21.0-51.0); %Monocytes 6.6 % (0.0-10.0); Hemoglobin 13.1 g/dL (12.0-16.0); Mean Corpuscular HGB CONC 31.3 g/dL (32.0-36.0); Mean Corpuscular Hemoglobin 28.6 pg (27.0-31.0); Mean Corpuscular Volume 91.4 fL (78.0-98.0); Mean Platelet Volume 9.5 fL (7.4-10.4); Platelet Count 249 thou/uL (130-400); RBC Distribution Width 14.2 % (11.5-14.5); Red Blood Cell (RBC) Count 4.59 mill/uL (4.20-5.40); White Blood Cell (WBC) Count 14.3 thou/uL (4.8-10.8)
[2020-11-19 19:32] LABS: Bilirubin Small (Negative); Blood, Urine Moderate (Negative); Glucose, Urine (Dipstick) Negative (Negative); Ketone, Urine Negative (Negative); Leukocyte Large (Negative); Nitrite Negative (Negative); Protein, Urine (Dipstick) > or equal to 300 mg/dL (Neg-Trace); Specific Gravity, Urine 1.025 (1.005-1.030)
[2020-11-19 19:38] LABS: Clarity Cloudy (Clear); RBC/HPF 0-3 HPF (0-3); WBC/HPF Greater Than 50 HPF (0-3)
[2020-11-19 19:39] LABS: Bacteria/HPF 3+ HPF (None Seen)
[2020-11-19 19:40] LABS: ALT (SGPT) 22 U/L (8-55); AST (SGOT) 14 U/L (5-34); Albumin 3.6 g/dL (3.5-5.0); Alkaline Phosphatase 68 U/L (40-110); Anion Gap 17 mmol/L (10-20); BUN (Urea Nitrogen) 23 mg/dL (9.8-20.1); Bilirubin, Total 0.7 mg/dL (0.2-1.2); Calc. Creatinine Clearance 0 mL/min (70-130); Calcium 10.4 mg/dL (7.8-10.44); Carbon Dioxide 26 mmol/L (22-29); Chloride 99 mmol/L (98-107); Globulin 3.4 g/dL (2.4-3.5); Glucose 108 mg/dL (70-105); Lipase 15 U/L (8-78); Magnesium 1.7 mg/dL (1.6-2.6); Potassium 3.9 mmol/L (3.5-5.1); Sodium 138 mmol/L (136-145)
[2020-11-19] MEDS ORDERED: Metoclopramide HCl 10 MG/2 ML VIAL ONE (20:02)
[2020-11-19] MEDS ORDERED: diphenhydrAMINE 50 MG/ML VIAL ONE (20:02)
[2020-11-19] MEDS ORDERED: Sodium Chloride 0.9% 1,000 ML ONE (20:02)
[2020-11-19] MEDS ORDERED: cefTRIAXone\\ROCEPHIN 1 GM VIAL ONE (22:06)
== END 2020-11-19 22:18 | disposition home or self-care (01) ==
LOC: MADERS 18:05
DX: N17.9 Acute kidney failure, unspecified (principal); N39.0 Urinary tract infection, site not specified; E86.0 Dehydration; R19.7 Diarrhea, unspecified; K21.9 Gastro-esophageal reflux disease without esophagitis; E78.5 Hyperlipidemia, unspecified; I25.2 Old myocardial infarction; I12.9 Hypertensive chronic kidney disease with stage 1 through stage 4 chronic kidney disease, or unspecified chronic kidney disease; N18.30 Chronic kidney disease, stage 3 unspecified; F17.210 Nicotine dependence, cigarettes, uncomplicated; Z79.899 Other long term (current) drug therapy
CPT/HCPCS: 36415; 74177; 80053; 81003; 81015; 83690; 83735; 85025; 96374; 96375; J0696; J1200; J2765; J7050

== ENCOUNTER 2021-12-29 21:18 | Emergency (ER) | payer OTHER ==
[2021-12-29] MEDS ORDERED: Boostrix 0.5 ML (Tdap) VIAL (>/=7 yrs of age) ONE (21:37)
[2021-12-29] MEDS ORDERED: Doxycycline 100 MG CAP ONE (21:39)
[2021-12-29] MEDS ORDERED: Cephalexin 500 MG CAP ONE (21:39)
== END 2021-12-29 22:03 | disposition home or self-care (01) ==
LOC: MADERS 21:18
DX: L03.032 Cellulitis of left toe (principal); I12.9 Hypertensive chronic kidney disease with stage 1 through stage 4 chronic kidney disease, or unspecified chronic kidney disease; N18.9 Chronic kidney disease, unspecified; B35.1 Tinea unguium; E78.5 Hyperlipidemia, unspecified; K21.9 Gastro-esophageal reflux disease without esophagitis; F17.210 Nicotine dependence, cigarettes, uncomplicated; Z79.01 Long term (current) use of anticoagulants; Z79.02 Long term (current) use of antithrombotics/antiplatelets; Z79.899 Other long term (current) drug therapy
CPT/HCPCS: 87070; 87205; 90471; 90715

== ENCOUNTER 2022-08-03 11:33 | Emergency (ER) | payer OTHER ==
[~2022-08-03 11:33] MED LIST changes: +Iopamidol 370 76% 100 ML VIAL ONE; -Sodium Chloride 0.9% 1,000 ML BAG ONE
[2022-08-03 12:15] LABS: #Basophils 0.1 thou/uL (0.0-0.2); #Eosinphils 0.1 thou/uL (0.0-0.7); #Lymphocytes 1.4 thou/uL (1.20-3.40); #Monocytes 0.3 thou/uL (0.11-0.59); #Neutrophils 3.8 thou/uL (1.40-6.50); %Basophils 1.1 % (0.0-1.0); %Eosinophils 0.9 % (0.0-10.0); %Lymphocytes 25.5 % (21.0-51.0); %Monocytes 5.4 % (0.0-10.0); %Neutrophils 67.1 % (42.0-75.0); Hemoglobin 14.6 g/dL (12.0-16.0); Mean Corpuscular HGB CONC 32.1 g/dL (32.0-36.0); Mean Corpuscular Hemoglobin 29.6 pg (27.0-31.0); Mean Corpuscular Volume 92.1 fl (78.0-98.0); Mean Platelet Volume 7.6 fL (7.4-10.4); Platelet Count 182 10x3/uL (130-400); RBC Distribution Width 13.8 % (11.5-14.5); Red Blood Cell (RBC) Count 4.92 mill/uL (4.20-5.40); White Blood Cell (WBC) Count 5.6 10x3/uL (4.8-10.8)
[2022-08-03 12:29] LABS: Bilirubin Negative (Negative); Blood, Urine Moderate (Negative); Clarity Cloudy (Clear); Glucose, Urine (Dipstick) Negative (Negative); Ketone, Urine Negative (Negative); Leukocyte Small (Negative); Nitrite Positive (Negative); Protein, Urine (Dipstick) 100 mg/dL (Neg-Trace); Specific Gravity, Urine 1.025 (1.005-1.030); Urobilinogen 0.2 mg/dL (Less than 2)
[2022-08-03] MEDS ORDERED: Morphine 2 MG/ML VIAL ONE (12:29)
[2022-08-03] MEDS ORDERED: Ondansetron PF 4 MG/2 ML Vial ONE (12:29)
[2022-08-03 12:30] LABS: ALT (SGPT) 14 U/L (8-55); AST (SGOT) 23 U/L (5-34); Albumin 4.1 g/dL (3.4-4.8); Alkaline Phosphatase 48 U/L (40-110); Anion Gap 19 mmol/L (10-20); BUN (Urea Nitrogen) 17 mg/dL (9.8-20.1); Bilirubin, Total Less than 0.2 mg/dL (0.2-1.2); Calc. Creatinine Clearance 0 mL/min (70-130); Calcium 9.4 mg/dL (7.8-10.44); Carbon Dioxide 21 mmol/L (23-31); Chloride 109 mmol/L (98-107); Estimated GFR 56; Globulin 3.2 g/dL (2.4-3.5); Glucose 85 mg/dL (80-115); Lipase 14 U/L (8-78); Magnesium 1.8 mg/dL (1.6-2.6); Potassium 4.4 mmol/L (3.5-5.1); Protein, Total 7.3 g/dL (5.8-8.1); Sodium 145 mmol/L (136-145)
[2022-08-03 12:40] LABS: Bacteria/HPF 1+ HPF (None Seen); Squamous Epithelial 0-3 HPF (0-3); WBC/HPF Greater than 50 HPF (0-3)
[2022-08-03] MEDS ORDERED: Sodium Chloride 0.9% 500 ML ONE (12:46)
[2022-08-03] MEDS ORDERED: Sodium Chloride 0.9% 100 ML ONE (13:05)
[2022-08-03] MEDS ORDERED: cefTRIAXone (ROCEPHIN) 2 GM VIAL ONE (13:05)
== END 2022-08-03 13:33 | disposition home or self-care (01) ==
LOC: MADERS 11:33
DX: N12 Tubulo-interstitial nephritis, not specified as acute or chronic (principal); K57.30 Diverticulosis of large intestine without perforation or abscess without bleeding; K21.9 Gastro-esophageal reflux disease without esophagitis; E78.5 Hyperlipidemia, unspecified; I10 Essential (primary) hypertension; I25.2 Old myocardial infarction; F17.210 Nicotine dependence, cigarettes, uncomplicated; Z79.899 Other long term (current) drug therapy
CPT/HCPCS: 74177; 80053; 81003; 81015; 83690; 83735; 85025; 87077; 87086; 87186; 96365; 96375; J0696; J2272; J2405; J7030; Q9967

== ENCOUNTER 2023-02-13 15:36 | Emergency (ER) | payer MEDICARE ==
[2023-02-13 16:02] LABS: Bilirubin Negative (Negative); Blood, Urine Moderate (Negative); Glucose, Urine (Dipstick) Negative (Negative); Ketone, Urine Negative (Negative); Leukocyte Moderate (Negative); Nitrite Negative (Negative); Protein, Urine (Dipstick) > or equal to 300 mg/dL (Neg-Trace); Specific Gravity, Urine 1.025 (1.005-1.030); Urobilinogen 0.2 mg/dL (Less than 2)
[2023-02-13 16:03] LABS: Clarity Cloudy (Clear)
[2023-02-13 16:11] LABS: CAUTI Indications for Culture Dysuria,urgency,freq; WBC/HPF Greater Than 50 HPF (0-3)
[2023-02-13 16:12] LABS: Bacteria/HPF Rare-Few HPF (None Seen); Urine Culture Reflex Yes Yes
[2023-02-13] MEDS ORDERED: cefTRIAXone (ROCEPHIN) 1 GM VIAL ONE (16:25)
== END 2023-02-13 16:59 | disposition home or self-care (01) ==
LOC: MADERS 15:36
DX: N39.0 Urinary tract infection, site not specified (principal); E78.5 Hyperlipidemia, unspecified; K21.9 Gastro-esophageal reflux disease without esophagitis; I12.9 Hypertensive chronic kidney disease with stage 1 through stage 4 chronic kidney disease, or unspecified chronic kidney disease; N18.30 Chronic kidney disease, stage 3 unspecified; F17.210 Nicotine dependence, cigarettes, uncomplicated
CPT/HCPCS: 81001; 87086; 96372; 99283; J0696

== ENCOUNTER 2023-05-17 09:02 | Emergency (ER) | payer MEDICARE ==
[2023-05-17] MEDS ORDERED: Sodium Chloride 0.9% 1,000 ML ONE (09:54)
[2023-05-17 10:32] LABS: ALT (SGPT) 12 U/L (8-55); AST (SGOT) 15 U/L (5-34); Albumin 3.5 g/dL (3.4-4.8); Alkaline Phosphatase 51 U/L (40-110); Anion Gap 15 mmol/L (10-20); BUN (Urea Nitrogen) 20 mg/dL (9.8-20.1); Bilirubin, Total 0.4 mg/dL (0.2-1.2); CK (CPK) 27 U/L (29-168); Calc. Creatinine Clearance 0 mL/min (70-130); Calcium 8.8 mg/dL (7.8-10.44); Carbon Dioxide 22 mmol/L (23-31); Chloride 108 mmol/L (98-107); Estimated GFR 49; Glucose 100 mg/dL (80-115); Potassium 4.5 mmol/L (3.5-5.1); Protein, Total 6.5 g/dL (5.8-8.1); Sodium 140 mmol/L (136-145)
[2023-05-17 10:41] LABS: Bilirubin Negative (Negative); Blood, Urine Large (Negative); Glucose, Urine (Dipstick) Negative (Negative); Ketone, Urine Negative (Negative); Leukocyte Large (Negative); Nitrite Negative (Negative); Protein, Urine (Dipstick) > or equal to 300 mg/dL (Neg-Trace); Specific Gravity, Urine 1.025 (1.005-1.030); Urobilinogen 0.2 mg/dL (Less than 2)
[2023-05-17 10:52] LABS: Bacteria/HPF 2+ HPF (None Seen); CAUTI Indications for Culture Pelvic or flank pain; Clarity Cloudy (Clear); Squamous Epithelial 0-3 HPF (0-3); WBC/HPF Greater than 50 HPF (0-3)
[2023-05-17 10:54] LABS: Urine Culture Reflex Yes Yes
[2023-05-17] MEDS ORDERED: cefTRIAXone (ROCEPHIN) 1 GM VIAL ONE (11:04)
[2023-05-17] MEDS ORDERED: Sodium Chloride 0.9% 100 ML ONE (11:04)
[2023-05-17 11:05] LABS: Hematocrit 35.7 % (36.0-47.0); Hemoglobin 11.6 g/dL (12.0-16.0); MDiff Complete? YES; Manual Diff?? YES; Mean Corpuscular HGB CONC 32.3 g/dL (32.0-36.0); Mean Corpuscular Hemoglobin 29.5 pg (27.0-31.0); Mean Corpuscular Volume 91.5 fl (78.0-98.0); Mean Platelet Volume 9.1 fL (7.4-10.4); Platelet Count 142 10x3/uL (130-400); RBC Distribution Width 14.3 % (11.5-14.5); Red Blood Cell (RBC) Count 3.94 mill/uL (4.20-5.40); White Blood Cell (WBC) Count 6.6 10x3/uL (4.8-10.8)
[2023-05-17 11:06] LABS: Anisocytosis SLIGHT = 6-15 cells (100X) (0-5/hpf); Band 6 % (5-11); Eosinophils 2 % (0-10); Lymphocytes 24 % (21-51); Monocytes 5 % (0-10); Neutrophil 63 % (42-75); Platelet Adequacy Comment Appears Adequate
== END 2023-05-17 11:43 | disposition home or self-care (01) ==
LOC: MADERS 09:02
DX: N39.0 Urinary tract infection, site not specified (principal); E86.0 Dehydration; N17.9 Acute kidney failure, unspecified; D64.9 Anemia, unspecified; F17.210 Nicotine dependence, cigarettes, uncomplicated; I25.2 Old myocardial infarction; E78.5 Hyperlipidemia, unspecified; I10 Essential (primary) hypertension; K21.9 Gastro-esophageal reflux disease without esophagitis; Z79.82 Long term (current) use of aspirin; Z79.899 Other long term (current) drug therapy
CPT/HCPCS: 80053; 81001; 82550; 85025; 87077; 87086; 96361; 96365; J0696; J3490; J7050

== ENCOUNTER 2024-04-21 17:02 | Emergency (ER) | payer MEDICARE ==
[2024-04-21 17:40] LABS: Bilirubin Negative (Negative); Blood, Urine Large (Negative); Glucose, Urine (Dipstick) Negative (Negative); Ketone, Urine Negative (Negative); Leukocyte Small (Negative); Nitrite Negative (Negative); Protein, Urine (Dipstick) 100 mg/dL (Neg-Trace); Urobilinogen 0.2 mg/dL (Less than 2); pH, Urine 5.5 (5.0-9.0)
[2024-04-21 17:41] LABS: Clarity Very Cloudy (Clear)
[2024-04-21 17:47] LABS: Bacteria/HPF Rare-Few HPF (None Seen); CAUTI Indications for Culture Dysuria,urgency,freq; Mucous/LPF 1+ LPF (<2+); RBC/HPF 21-50 HPF (0-3); Urine Culture Reflex Yes Yes; WBC/HPF Greater Than 50 HPF (0-3)
[2024-04-21] MEDS ORDERED: fentaNYL 50 mcg/mL 1 mL Vial ONE (18:29)
[2024-04-21 18:54] LABS: Hematocrit 33.4 % (36.0-47.0); Hemoglobin 10.3 g/dL (12.0-16.0); MDiff Complete? YES; Manual Diff?? YES; Mean Corpuscular HGB CONC 30.9 g/dL (32.0-36.0); Mean Corpuscular Hemoglobin 27.6 pg (27.0-31.0); Mean Corpuscular Volume 89.2 fl (78.0-98.0); Mean Platelet Volume 6.5 fL (7.4-10.4); Platelet Count 263 10x3/uL (130-400); RBC Distribution Width 15.5 % (11.5-14.5); Red Blood Cell (RBC) Count 3.75 mill/uL (4.20-5.40)
[2024-04-21 19:00] LABS: Band 6 % (5-11); Eosinophils 1 % (0-10); Lymphocytes 9 % (21-51); Reactive Lymphocytes 5 % (0-10)
[2024-04-21 19:01] LABS: Monocytes 2 % (0-10); Neutrophil 77 % (42-75)
[2024-04-21 19:02] LABS: Anisocytosis SLIGHT = 6-15 cells (100X) (0-5/hpf); Platelet Adequacy Comment Appears Adequate; Polychromasia SLIGHT = 2-3 cells (100X) (0-2/hpf)
[2024-04-21 19:03] LABS: ALT (SGPT) Less than 7 U/L (Less than 34); AST (SGOT) 9 U/L (11-34); Albumin 2.9 g/dL (3.1-4.5); Alkaline Phosphatase 65 U/L (40-110); Anion Gap 18 mmol/L (10-20); BUN (Urea Nitrogen) 37 mg/dL (9.8-20.1); Bilirubin, Total 0.1 mg/dL (0.3-1.2); Calc. Creatinine Clearance 0 mL/min (70-130); Calcium 9.1 mg/dL (7.8-10.44); Carbon Dioxide 14 mmol/L (23-31); Chloride 112 mmol/L (98-107); Estimated GFR 25; Globulin 4.1 g/dL (2.4-3.5); Glucose 96 mg/dL (80-115); Potassium 4.3 mmol/L (3.5-5.1); Sodium 140 mmol/L (136-145)
[2024-04-21] MEDS ORDERED: Sodium Chloride 0.9% 1,000 ML ONE (19:08)
[2024-04-21] MEDS ORDERED: Morphine 4 MG/ML VIAL ONE (19:34)
[2024-04-21] MEDS ORDERED: Piperacillin/Tazobactam 4.5 GM VIAL ONE (20:01)
[2024-04-21] MEDS ORDERED: Sodium Chloride 0.9% 100 ML ONE (20:01)
== END 2024-04-21 20:51 | disposition home or self-care (01) ==
LOC: MADERS 17:02
DX: K52.9 Noninfective gastroenteritis and colitis, unspecified (principal); N17.9 Acute kidney failure, unspecified; E86.0 Dehydration; I12.9 Hypertensive chronic kidney disease with stage 1 through stage 4 chronic kidney disease, or unspecified chronic kidney disease; N18.30 Chronic kidney disease, stage 3 unspecified; K21.9 Gastro-esophageal reflux disease without esophagitis; E78.5 Hyperlipidemia, unspecified; F17.210 Nicotine dependence, cigarettes, uncomplicated; Z79.82 Long term (current) use of aspirin; Z79.899 Other long term (current) drug therapy
CPT/HCPCS: 36415; 74176; 80053; 81001; 85025; 87077; 87086; 87186; 96361; 96365; 96375; J2270; J2543; J3010; J7030

== ENCOUNTER 2024-04-30 16:54 | Emergency (ER) | payer MEDICARE ==
[2024-04-30] MEDS ORDERED: Ondansetron PF 4 MG/2 ML Vial ONE (17:21)
[2024-04-30] MEDS ORDERED: Morphine 4 MG/ML VIAL ONE (17:21)
[2024-04-30] MEDS ORDERED: Sodium Chloride 0.9% 1,000 ML ONE (17:23)
[2024-04-30 17:58] LABS: Anisocytosis SLIGHT = 6-15 cells (100X) (0-5/hpf); Band 8 % (5-11); Hematocrit 37.7 % (36.0-47.0); Hemoglobin 11.5 g/dL (12.0-16.0); Hypochromia SLIGHT = 6-15 cells (100X) (0-5/hpf); Lymphocytes 4 % (21-51); MDiff Complete? YES; Mean Corpuscular HGB CONC 30.6 g/dL (32.0-36.0); Mean Corpuscular Volume 88.2 fl (78.0-98.0); Mean Platelet Volume 6.5 fL (7.4-10.4); Monocytes 5 % (0-10); Neutrophil 83 % (42-75); Platelet Adequacy Comment Appears Adequate; Platelet Count 343 10x3/uL (130-400); RBC Distribution Width 14.9 % (11.5-14.5); Red Blood Cell (RBC) Count 4.27 mill/uL (4.20-5.40); White Blood Cell (WBC) Count 17.3 10x3/uL (4.8-10.8)
[2024-04-30 18:00] LABS: ALT (SGPT) Less than 7 U/L (Less than 34); AST (SGOT) 12 U/L (11-34); Albumin 3.1 g/dL (3.1-4.5); Alkaline Phosphatase 91 U/L (40-110); Anion Gap 16 mmol/L (10-20); BUN (Urea Nitrogen) 20 mg/dL (9.8-20.1); Bilirubin, Total 0.2 mg/dL (0.3-1.2); Calc. Creatinine Clearance 0 mL/min (70-130); Calcium 9.6 mg/dL (7.8-10.44); Carbon Dioxide 18 mmol/L (23-31); Chloride 108 mmol/L (98-107); Estimated GFR 28; Globulin 4.5 g/dL (2.4-3.5); Glucose 102 mg/dL (80-115); Lipase 11 U/L (8-78); Potassium 3.8 mmol/L (3.5-5.1); Protein, Total 7.6 g/dL (5.8-8.1); Sodium 138 mmol/L (136-145)
[2024-04-30] MEDS ORDERED: Ciprofloxacin Lactate D5W 400 mg (200 mL) BAG ONE (18:01)
== END 2024-04-30 19:12 | disposition home or self-care (01) ==
LOC: MADERS 16:54
DX: A09 Infectious gastroenteritis and colitis, unspecified (principal); I25.2 Old myocardial infarction; I12.9 Hypertensive chronic kidney disease with stage 1 through stage 4 chronic kidney disease, or unspecified chronic kidney disease; N18.30 Chronic kidney disease, stage 3 unspecified; F17.210 Nicotine dependence, cigarettes, uncomplicated
CPT/HCPCS: 74176; 80053; 83690; 85025; 96361; 96374; 96375; 99284; J0744; J2270; J2405; J7030

== ENCOUNTER 2025-02-07 16:49 | Emergency (ER) | payer MEDICARE ==
[2025-02-07 17:26] LABS: #Basophils 0.0 thou/uL (0.0-0.2); #Eosinophils 0.0 thou/uL (0.0-0.7); #Lymphocytes 1.4 thou/uL (1.20-3.40); #Monocytes 0.5 thou/uL (0.11-0.59); #Neutrophils 7.6 thou/uL (1.40-6.50); %Basophils 0.4 % (0.0-1.0); %Eosinophils 0.5 % (0.0-10.0); %Lymphocytes 14.6 % (21.0-51.0); %Monocytes 5.2 % (0.0-10.0); %Neutrophils 79.3 % (42.0-75.0); Hematocrit 27.1 % (36.0-47.0); Hemoglobin 8.2 g/dL (12.0-16.0); Mean Corpuscular Hemoglobin 27.8 pg (27.0-31.0); Mean Corpuscular Volume 92.0 fl (78.0-98.0); Platelet Count 178 10x3/uL (130-400); Red Blood Cell (RBC) Count 2.95 mill/uL (4.20-5.40); White Blood Cell (WBC) Count 9.5 10x3/uL (4.8-10.8)
[2025-02-07] MEDS ORDERED: Ondansetron PF 4 MG/2 ML Vial ONE (17:28)
[2025-02-07 17:43] LABS: ALT (SGPT) 12 U/L (Less than 34); AST (SGOT) 25 U/L (11-34); Albumin 2.5 g/dL (3.1-4.5); Alkaline Phosphatase 66 U/L (40-110); Anion Gap 20 mmol/L (10-20); BUN (Urea Nitrogen) 37 mg/dL (9.8-20.1); Bilirubin, Total 0.2 mg/dL (0.3-1.2); Calc. Creatinine Clearance 0 mL/min (70-130); Calcium 8.7 mg/dL (7.8-10.44); Carbon Dioxide 22 mmol/L (23-31); Chloride 98 mmol/L (98-107); Globulin 4.0 g/dL (2.4-3.5); Glucose 112 mg/dL (80-115); Lipase 69 U/L (8-78); Potassium 3.8 mmol/L (3.5-5.1); Sodium 136 mmol/L (136-145)
[2025-02-07] MEDS ORDERED: metroNIDAZOLE 500 MG (100 mL) BAG ONE (20:49)
[2025-02-08] MEDS ORDERED: Ondansetron PF 4 MG/2 ML Vial ONE (01:15)
== END 2025-02-08 08:42 | disposition short-term general hospital (02) ==
LOC: MADERS 16:49
DX: G89.18 Other acute postprocedural pain (principal); R10.9 Unspecified abdominal pain; K65.1 Peritoneal abscess; I13.2 Hypertensive heart and chronic kidney disease with heart failure and with stage 5 chronic kidney disease, or end stage renal disease; I50.9 Heart failure, unspecified; N18.6 End stage renal disease; Z95.9 Presence of cardiac and vascular implant and graft, unspecified; F17.210 Nicotine dependence, cigarettes, uncomplicated; F17.290 Nicotine dependence, other tobacco product, uncomplicated; I25.10 Atherosclerotic heart disease of native coronary artery without angina pectoris
CPT/HCPCS: 74176; 80053; 83605; 83690; 85025; 87040; 93005; J0692; J2270 ×2; J2405 ×2; 36415; 96365; 96375; 96376